=== PATIENT | female | born 1990 | race Caucasian/White ===

== ENCOUNTER 2020-12-22 18:45 | Emergency (ER) | payer OTHER ==
[2020-12-22 19:16] VITALS: TEMP 98.5; BMI 28.3
[2020-12-22 20:16] LABS: HCG,QUALITATIVE URINE Positive; PH,URINE 5.5 (5.0-8.0); URINE APPEARANCE CLEAR; URINE BILIRUBIN NEGATIVE (NEGATIVE); URINE COLOR YELLOW; URINE GLUCOSE (UA) NEGATIVE (NEGATIVE); URINE KETONE NEGATIVE (NEGATIVE); URINE LEUK ESTERASE NEGATIVE (NEGATIVE); URINE NITRITE NEGATIVE (NEGATIVE); URINE PROTEIN NEGATIVE (NEGATIVE); URINE UROBILINOGEN 0.2 mg/dL (0.2-1.0)
[2020-12-22 20:40] VITALS: BP 130/72; PULSE 80
== END 2020-12-22 20:39 | disposition home or self-care (01) ==
LOC: JER 18:45
DX: O21.9 Vomiting of pregnancy, unspecified (principal); K42.9 Umbilical hernia without obstruction or gangrene; Z3A.01 Less than 8 weeks gestation of pregnancy
CPT/HCPCS: 81003; 84703; 99283-25

== ENCOUNTER 2021-08-26 20:27 | Emergency (ER) | payer OTHER ==
[2021-08-26 20:39] VITALS: BP 116/77; PULSE 72; TEMP 98; BMI 28.8
== END 2021-08-26 23:37 | disposition home or self-care (01) ==
LOC: JERFT 20:27 → JER 20:27 → JERFT 23:37
DX: L29.0 Pruritus ani (principal)
CPT/HCPCS: 99283-25